=== PATIENT | female | born 1985 | race Caucasian/White ===

== ENCOUNTER 2022-03-13 01:35 | Emergency (ER) | payer OTHER ==
[2022-03-13] MEDS ORDERED: ONDANSETRON 4 MG/2 ML VIAL IVP STA (02:40)
[2022-03-13] MEDS ORDERED: SODIUM CHLORIDE 0.9% 1,000 ML IV STA (02:40)
[2022-03-13] MEDS ORDERED: MORPHINE SULFATE 4 MG/ML SYRINGE IV STA (02:40)
--- NOTE | 2022-03-13 02:45 | ED ---
Abdominal Pain HPI - General Source: patient, RN notes reviewed Mode of arrival: ambulatory <Devendra Sprague - Last Filed: 03/13/22 04:13> <Gordon Oliver - Last Filed: 03/13/22 06:31> - General Chief Complaint: Abdominal Pain Stated Complaint: abdominal pain Time Seen by Provider: 03/13/22 02:24 - History of Present Illness Initial Comments: This is a pleasant 37-year-old female presents complaining of sharp left pelvic pain which started about midnight. Patient states it's about 9 out of 10 in intensity. Patient did have an episode of vomiting which she relates to the pain. She tried some Pepto-Bismol although the pain is in the pelvic area. Denies any vaginal bleeding. Last menstrual period was on February 15. No problems with urination or bowel movements. No headache, no fever or chills, no changes in vision or hearing, no sore throat or difficulty with speech, no neck pain, no chest pain or shortness of breath, no changes in urination or bowel movements, no numbness or tingling, no extremity pain, no skin rashes or lesions. Past medical, surgical, social, and family history reviewed. (Devendra Sprague) - Related Data Previous Rx's Medication Instructions Recorded HYDROcodone/APAP 5-325MG [[place] 1 tab PO Q4HR PRN 3 Days #18 tab 03/13/22 5-325] Ondansetron Odt [Zofran ODT] 4 mg PO Q8HR PRN #10 tab 03/13/22 Tamsulosin [Flomax] 0.4 mg PO DAILY #14 cap 03/13/22 Allergies Allergy/AdvReac Type Severity Reaction Status Date / Time codeine AdvReac Nausea & Verified 03/13/22 02:23 Vomiting Review of Systems ROS Other: All systems not noted in ROS Statement are negative. <eDvendra Sprague - Last Filed: 03/13/22 04:13> ROS Other: All systems not noted in ROS Statement are negative. <Gordon Oliver - Last Filed: 03/13/22 06:31> ROS Statement: Those systems with pertinent positive or pertinent negative responses have been documented in the HPI. Past Medical History Past Medical History: No Reported History History of Any Multi-Drug Resistant Organisms: None Reported Additional Past Surgical History / Comment(s): breast implants Past Psychological History: No Psychological Hx Reported Smoking Status: Never smoker Past Alcohol Use History: None Reported Past Drug Use History: None Reported <Devendra Sprague - Last Filed: 03/13/22 04:13> General Exam Limitations: no limitations General appearance: alert, in distress Head exam: Present: atraumatic, normocephalic, normal inspection Eye exam: Present: normal appearance, PERRL, EOMI. Absent: scleral icterus, conjunctival injection, periorbital swelling ENT exam: Present: normal exam, mucous membranes moist Neck exam: Present: normal inspection. Absent: tenderness, meningismus, lymphadenopathy Respiratory exam: Present: normal lung sounds bilaterally. Absent: respiratory distress, wheezes, rales, rhonchi, stridor Cardiovascular Exam: Present: regular rate, normal rhythm, normal heart sounds. Absent: systolic murmur, diastolic murmur, rubs, gallop, clicks GI/Abdominal exam: Present: tenderness (Left pelvic pain to palpation), guarding, normal bowel sounds. Absent: distended, rebound, rigid Extremities exam: Present: normal inspection, full ROM, normal capillary refill. Absent: tenderness, pedal edema, joint swelling, calf tenderness Back exam: Present: normal inspection Neurological exam: Present: alert, oriented X3, CN II-XII intact Psychiatric exam: Present: normal affect, normal mood Skin exam: Present: warm, dry, intact, normal color. Absent: rash <Devendra Sprague - Last Filed: 03/13/22 04:13> - General Exam Comments Initial Comments: Vital signs reviewed, patient appears to be in distress secondary to left pelvic pain. Does not appear to be ill or toxic. (Devendra Sprague) Course Vital Signs 03/13/22 03/13/22 02:19 06:08 Temperature 98 F 97.5 F L Pulse Rate 75 77 Respiratory 19 18 Rate Blood Pressure 144/83 105/69 O2 Sat by Pulse 99 100 Oximetry Medical Decision Making - Lab Data Result diagrams: 03/13/22 03:04 03/13/22 03:04 <Devendra Sprague - Last Filed: 03/13/22 04:13> - Lab Data Result diagrams: 03/13/22 03:04 03/13/22 03:04 <Gordon Oliver - Last Filed: 03/13/22 06:31> - Medical Decision Making Urinalysis shows 4+ ketones, 13 squamous epithelial cells, rare bacteria, 7 red cells and 6 white cells. This is likely contaminated. Essentially nonspecific. CMP essentially normal. CBC shows a white blood cell count of 16,900, neutro marty count 14,400, noted the patient did vomit. Ultrasound was nondiagnostic. No evidence of ovarian pathology or ovarian torsion. Computed tomography scan ordered. Other infectious versus inflammatory etiology possible, possible ureteral stone. Patient has no CVA tenderness. Does not appear to be consistent with a urinary tract infection. (Devendra Sprague) - Lab Data Lab Results 03/13/22 03/13/22 03/13/22 Range/Units 03:04 03:04 03:04 WBC 16.9 H (3.8-10.6) k/uL RBC 4.78 (3.80-5.40) m/uL Hgb 14.4 (11.4-16.0) gm/dL Hct 43.0 (34.0-46.0) % MCV 89.9 (80.0-100.0) fL MCH 30.2 (25.0-35.0) pg MCHC 33.6 (31.0-37.0) g/dL RDW 12.7 (11.5-15.5) % Plt Count 400 (150-450) k/uL MPV 7.1 Neutrophils % 86 % Lymphocytes % 11 % Monocytes % 3 % Eosinophils % 0 % Basophils % 0 % Neutrophils # 14.4 H (1.3-7.7) k/uL Lymphocytes # 1.8 (1.0-4.8) k/uL Monocytes # 0.4 (0-1.0) k/uL Eosinophils # 0.0 (0-0.7) k/uL Basophils # 0.0 (0-0.2) k/uL Sodium (137-145) mmol/L Potassium (3.5-5.1) mmol/L Chloride (98-107) mmol/L Carbon Dioxide (22-30) mmol/L Anion Gap mmol/L BUN (7-17) mg/dL Creatinine (0.52-1.04) mg/dL Est GFR (CKD-EPI)AfAm (>60 ml/min/1.73 sqM) Est GFR (CKD-EPI)NonAf (>60 ml/min/1.73 sqM) Glucose (74-99) mg/dL Calcium (8.4-10.2) mg/dL Total Bilirubin (0.2-1.3) mg/dL AST (14-36) U/L ALT (4-34) U/L Alkaline Phosphatase (38-126) U/L Total Protein (6.3-8.2) g/dL Albumin (3.5-5.0) g/dL Lipase (23-300) U/L Urine Color Yellow Urine Appearance Cloudy H (Clear) Urine pH 5.5 (5.0-8.0) Ur Specific Buhl 1.040 H (1.001-1.035) Urine Protein 1+ H (Negative) Urine Glucose (UA) Negative (Negative) Urine Ketones 4+ H (Negative) Urine Blood Negative (Negative) Urine Nitrite Negative (Negative) Urine Bilirubin Negative (Negative) Urine Urobilinogen 2.0 (<2.0) mg/dL Ur Leukocyte Esterase Trace H (Negative) Urine RBC 7 H (0-5) /hpf Urine WBC 6 H (0-5) /hpf Ur Squamous Epith Cells 13 H (0-4) /hpf Urine Bacteria Rare H (None) /hpf Urine Mucus Many H (None) /hpf Urine HCG, Qual Not Detected (Not Detectd) 03/13/22 Range/Units 03:04 WBC (3.8-10.6) k/uL RBC (3.80-5.40) m/uL Hgb (11.4-16.0) gm/dL Hct (34.0-46.0) % MCV (80.0-100.0) fL MCH (25.0-35.0) pg MCHC (31.0-37.0) g/dL RDW (11.5-15.5) % Plt Count (150-450) k/uL MPV Neutrophils % % Lymphocytes % % Monocytes % % Eosinophils % % Basophils % % Neutrophils # (1.3-7.7) k/uL Lymphocytes # (1.0-4.8) k/uL Monocytes # (0-1.0) k/uL Eosinophils # (0-0.7) k/uL Basophils # (0-0.2) k/uL Sodium 138 (137-145) mmol/L Potassium 4.0 (3.5-5.1) mmol/L Chloride 104 (98-107) mmol/L Carbon Dioxide 23 (22-30) mmol/L Anion Gap 11 mmol/L BUN 19 H (7-17) mg/dL Creatinine 0.87 (0.52-1.04) mg/dL Est GFR (CKD-EPI)AfAm >90 (>60 ml/min/1.73 sqM) Est GFR (CKD-EPI)NonAf 86 (>60 ml/min/1.73 sqM) Glucose 129 H (74-99) mg/dL Calcium 9.3 (8.4-10.2) mg/dL Total Bilirubin 0.6 (0.2-1.3) mg/dL AST 25 (14-36) U/L ALT 15 (4-34) U/L Alkaline Phosphatase 65 (38-126) U/L Total Protein 7.7 (6.3-8.2) g/dL Albumin 4.6 (3.5-5.0) g/dL Lipase 119 (23-300) U/L Urine Color Urine Appearance (Clear) Urine pH (5.0-8.0) Ur Specific Buhl (1.001-1.035) Urine Protein (Negative) Urine Glucose (UA) (Negative) Urine Ketones (Negative) Urine Blood (Negative) Urine Nitrite (Negative) Urine Bilirubin (Negative) Urine Urobilinogen (<2.0) mg/dL Ur Leukocyte Esterase (Negative) Urine RBC (0-5) /hpf Urine WBC (0-5) /hpf Ur Squamous Epith Cells (0-4) /hpf Urine Bacteria (None) /hpf Urine Mucus (None) /hpf Urine HCG, Qual (Not Detectd) Disposition <Devendra Sprague - Last Filed: 03/13/22 04:13> Is patient prescribed a controlled substance at d/c from ED?: No <Gordon Oliver - Last Filed: 03/13/22 06:31> Clinical Impression: Kidney stone Disposition: HOME SELF-CARE Condition: Good Instructions (If sedation given, give patient instructions): Kidney Stones (ED) Prescriptions: Tamsulosin [Flomax] 0.4 mg PO DAILY #14 cap HYDROcodone/APAP 5-325MG [[place] 5-325] 1 tab PO Q4HR PRN 3 Days #18 tab PRN Reason: Pain Ondansetron Odt [Zofran ODT] 4 mg PO Q8HR PRN #10 tab PRN Reason: Nausea Referrals: Adri Hills MD [Primary Care Provider] - 1-2 days George Olivarez MD [STAFF PHYSICIAN] - 1-2 days
[2022-03-13 03:15] LABS: Basophils % (A) 0 %; Eosinophils % (A) 0 %; HGB 14.4 gm/dL (11.4-16.0); Lymphocytes # (A) 1.8 k/uL (1.0-4.8); Lymphocytes % (A) 11 %; MCH 30.2 pg (25.0-35.0); MCHC 33.6 g/dL (31.0-37.0); MCV 89.9 fL (80.0-100.0); Mean Platelet Volume 7.1; Monocytes # (A) 0.4 k/uL (0-1.0); Monocytes % (A) 3 %; Neutrophils # (A) 14.4 k/uL (1.3-7.7); Neutrophils % (A) 86 %; Platelet Count 400 k/uL (150-450); RBC 4.78 m/uL (3.80-5.40); RDW 12.7 % (11.5-15.5); WBC 16.9 k/uL (3.8-10.6)
[2022-03-13 03:20] LABS: Appearance,Urine Cloudy (Clear); Bacteria,Urine Rare /hpf; Bilirubin,Urine Negative (Negative); Blood,Urine Negative (Negative); Color,Urine Yellow; Glucose,Urine (UA) Negative (Negative); Ketones,Urine 4+ (Negative); Leukocyte Esterase,Urine Trace (Negative); Mucus,Urine Many /hpf; Nitrite,Urine Negative (Negative); PH, Urine 5.5 (5.0-8.0); Protein,Urine 1+ (Negative); RBC,Urine 7 /hpf (0-5); Squamous Epithelial Cell,Urine 13 /hpf (0-4); WBC,Urine 6 /hpf (0-5)
[2022-03-13 03:26] LABS: ALT 15 U/L (4-34); AST 25 U/L (14-36); African American GFR (CKD) >90 (>60 ml/min/1.73 sqM); Albumin 4.6 g/dL (3.5-5.0); Alkaline Phosphatase 65 U/L (38-126); Anion Gap 11 mmol/L; Blood Urea Nitrogen 19 mg/dL (7-17); Calcium 9.3 mg/dL (8.4-10.2); Carbon Dioxide 23 mmol/L (22-30); Chloride 104 mmol/L (98-107); Glucose 129 mg/dL (74-99); Lipase 119 U/L (23-300); Non-African American GFR(CKD) 86 (>60 ml/min/1.73 sqM); Sodium 138 mmol/L (137-145); Total Bilirubin 0.6 mg/dL (0.2-1.3); Total Protein 7.7 g/dL (6.3-8.2)
--- NOTE | 2022-03-13 03:53 | US ---
EXAMINATION TYPE: US transvaginal DATE OF EXAM: 03/13/2022 COMPARISON: NONE CLINICAL HISTORY: Left pelvic pain, rule out ovarian torsion. sudden onset of LLQ pain x 3 hours, G1P 1,vomited, took Pepto TECHNIQUE: TV. Transvaginal sonographic images Date of LMP: February EXAM MEASUREMENTS: Uterus: 6.5 x 4.4 x 4.1 cm Endometrial Stripe: 1.0 cm Right Ovary: not seen Left Ovary: 2.5 x 1.6 x 2.0 cm 1. Uterus: Retroverted wnl 2. Endometrium: wnl 3. Right Ovary: obscured by bowel gas 4. Left Ovary: involuting cyst versus follicle = 1.0 x 1.0 x 0.7cm Spectral, color and waveform doppler imaging shows good arterial and venous flow within the left ov tashi; there is no evidence for left ovarian torsion. 5. Bilateral Adnexa: wnl 6. Posterior cul-de-sac: wnl IMPRESSION: Normal uterus and endometrium. No adnexal mass. No evidence of ovarian torsion.
[2022-03-13] MEDS ORDERED: KETOROLAC 15 MG/ML 1 ML VIAL IVP STA (04:12)
--- NOTE | 2022-03-13 05:20 | CT ---
EXAMINATION TYPE: CT abdomen pelvis w con DATE OF EXAM: 03/13/2022 COMPARISON: None HISTORY: LLQ pain CT DLP: 604.6 mGycm Automated exposure control for dose reduction was used. CONTRAST: Performed with IV Contrast, patient injected with 100 mL of Isovue 300. Images obtained from the diaphragm to the floor of the pelvis with the IV contrast. Lung bases are clear. No pleural effusion. Heart size is normal. There are bilateral breast implants. No pericardial effusion. Liver spleen and stomach pancreas and gallbladder appear intact. The bile ducts are not dilated. There is no adrenal mass. Kidneys have normal size. There is left-sided hydronephrosis and delayed le ft-sided pyelogram. Right kidney shows satisfactory excretion on the delayed images. No evidence of r enal mass. There is left-sided hydroureter. There is obstructing 2 mm calculus in the distal left ure ter close to the ureterovesical junction. No inguinal hernia. The urinary bladder is almost empty. No pelvic mass. No free fluid in the pelvis. Appendix is posteri or and medial and appears normal. There is no mesenteric edema. No ascites or free air. No sign of a bowel obstruction. The lumbar vertebra show fairly normal alignment. There is a minimal L5-S1 spondylolisthesis. There i s bilateral L5 spondylolysis. No compression fracture. The bony pelvis is intact. Hip joints are inta ct. IMPRESSION: Obstructing calculus at the left ureterovesical junction. Left-sided hydronephrosis and hydroureter. L5 spondylolysis with minimal spondylolisthesis. Normal appendix.
[2022-03-13] MEDS ORDERED: HYDROmorphone 1 MG/ML 1 ML SYRINGE IVP STA (05:31)
[2022-03-13 06:12] VITALS: BP 105/69; PULSE 77; RESP 18; TEMP 97.5
[2022-03-13] MEDS ORDERED: TAMSULOSIN 0.4 MG CAP.ER.24H PO STA (06:27)
== END 2022-03-13 06:53 | disposition home or self-care (01) ==
LOC: EC 01:35
DX: N20.0 Calculus of kidney (principal); Z88.6 Allergy status to analgesic agent
CPT/HCPCS: 36415; 80053; 83690; 85025; 81001; 81025; 93976; 76830; 74177; 99284; 96374; 96375; 96361; J2270; J1170; J1885; Q9967

== ENCOUNTER → 2022-04-07 | Outpatient (CLI) | payer OTHER ==
--- NOTE | 2022-04-08 06:05 | US ---
EXAMINATION TYPE: US kidneys/renal and bladder DATE OF EXAM: 04/07/2022 COMPARISON: CT March 13, 2022 CLINICAL HISTORY: N20.1 CALCULUS OF URETER. Follow up left kidney stone EXAM MEASUREMENTS: Right Kidney: 9.2 x 3.9 x 4.4 cm Left Kidney: 8.3 x 4.8 x 4.9 cm Right Kidney: No hydronephrosis or masses seen Left Kidney: No hydronephrosis or masses seen Bladder: wnl Bilateral Jets seen: Yes There is no evidence for hydronephrosis at this point in time on today's ultrasound. No nephrolithia sis is seen. No concerning renal masses are identified. The urinary bladder is adequately distended . Bilateral ureteral jets are seen. IMPRESSION: Interval resolution of left-sided hydronephrosis. Suspect interval passage or successful treatment of prior visualized tiny distal left ureter stone. Correlate clinically.
== END | disposition home or self-care (01) ==
LOC: RADUSWWP 16:18
PROVIDERS: ATTEND Urology
DX: N20.1 Calculus of ureter (principal)
CPT/HCPCS: 76770